=== PATIENT | female | born 1980 | race Caucasian/White ===

== ENCOUNTER 2017-04-19 19:33 | Emergency (ER) | payer MEDICAID ==
[2017-04-19 19:38] VITALS: BP 108/75; PULSE 77; RESP 18; TEMP 98.6; O2SAT 99
--- NOTE | 2017-04-19 20:18 | C.PDOC ---
History Of Present Illness The pt is a 36yo female, presents to the ED for evaluation stating "my nerves are shaking" and admits to feeling anxious. Pt has a history of depression and reports she stopped taking her Gabapentin 1 month ago. She states she had a psychiatrist appointment yesterday which she was unable to make. Pt denies any suicidal or homicidal ideation. States she had similar symptoms in the past and denies any new symptoms, chest pain, shortness of breath or fevers. Pt offers no additional medical complaints. 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) History/Exam Limitations: no limitations Onset/Duration Of Symptoms: Days, Waxing/Waning Associated Symptoms: Anxiety Past Medical History Reviewed: Historical Data, Nursing Documentation, Vital Signs Vital Signs: Last Vital Signs Temp 98.6 F 04/19/17 19:34 Pulse 77 04/19/17 19:34 Resp 18 04/19/17 19:34 BP 108/75 04/19/17 19:34 Pulse Ox 99 04/19/17 21:00 - Medical History PMH: Anxiety, Depression Denies: HIV, HTN, Chronic Kidney Disease, Seizures, Sexually Transmitted Disease Surgical History: No Surg Hx Family History: States: Unknown Family Hx - Social History Hx Tobacco Use: No Hx Alcohol Use: No Hx Substance Use: No - Immunization History Hx Tetanus Toxoid Vaccination: No Hx Influenza Vaccination: No Hx Pneumococcal Vaccination: No Review Of Systems Except As Marked, All Systems Reviewed And Found Negative. Neurological: Positive for: Other ("nerve shaking") Psych: Positive for: Anxiety. Negative for: Suicidal ideation, Other ( homicidal ideation) Physical Exam - Physical Exam Appears: Well, Non-toxic, No Acute Distress, Other (mildly anxious appearing ) Skin: Normal Color, Dry Head: Atraumatic, Normacephalic Eye(s): bilateral: Normal Inspection, EOMI Nose: Normal Oral Mucosa: Moist Neck: Normal ROM, Supple Chest: Symmetrical Cardiovascular: Rhythm Regular Respiratory: Normal Breath Sounds Gastrointestinal/Abdominal: Soft, No Tenderness Neurological/Psych: Oriented x3, Normal Speech, Normal Cognition ED Course And Treatment - Laboratory Results Result Diagrams: 04/19/17 20:15 04/19/17 20:15 O2 Sat by Pulse Oximetry: 99 (RA) Pulse Ox Interpretation: Normal Progress Note: Pt treated with benadryl and evaluated by mission worker Lisa who notes patient does not meet admission criteria. Pt instructed to follow up outpatient and take medications as instructed by her doctor. Pt agrees and notes she came to ED bc she needs a work note. Disposition - Disposition Disposition: HOME/ ROUTINE Disposition Time: 20:59 Condition: STABLE Additional Instructions: Follow up with primary medical doctor in 1-3 days without fail for further evaluation. Take medications as prescribed by your doctor. Return to the emergency department at any time if symptoms persist or worsen. Instructions: Anxiety (ED) Forms: [facility] (Bangladeshi), Work Excuse - Clinical Impression Clinical Impression: Anxiety - Scribe Statement The provider has reviewed the documentation as recorded by the Alexander Lazar Provider Attestation: All medical record entries made by the Alexander were at my direction and personally dictated by me. I have reviewed the chart and agree that the record accurately reflects my personal performance of the history, physical exam, medical decision making, and the department course for this patient. I have also personally directed, reviewed, and agree with the discharge instructions and disposition.
[2017-04-19 20:29] LABS: BASO % 0.5 % (0.0-2.0); EOS # 0.1 K/uL (0.0-0.7); EOS % 1.2 % (0.0-4.0); HEMATOCRIT 36.9 % (34.0-47.0); LYMPH % 39.7 % (20.0-40.0); MEAN CELL VOLUME 84.8 fL (81.0-99.0); MEAN CORPUSCULAR HEMOGLOBIN 28.1 pg (27.0-31.0); MEAN CORPUSCULAR HGB CONC 33.1 g/dL (33.0-37.0); MEAN PLATELET VOLUME 10.1 fL (7.2-11.7); MONO # 0.5 K/uL (0.0-0.8); MONO % 7.4 % (0.0-10.0); RED CELL DISTRIBUTION WIDTH 13.7 % (11.5-14.5); WHITE BLOOD COUNT 7.4 K/uL (4.8-10.8)
[2017-04-19 20:30] LABS: RBC URINE 1 /hpf (0-3); URINE BACTERIA RARE (<OCC); URINE BILIRUBIN NEGATIVE (NEGATIVE); URINE BLOOD NEGATIVE (NEGATIVE); URINE COLOR Yellow (YELLOW); URINE GLUCOSE (UA) NORMAL (Normal); URINE KETONE NEGATIVE (NEGATIVE); URINE LEUKOCYTE ESTERASE NEGATIVE Leu/uL (Negative); URINE PROTEIN NEGATIVE (NEGATIVE); URINE UROBILINOGEN NORMAL mg/dL (0.2-1.0); WBC URINE < 1 /hpf (0-5)
[2017-04-19 20:32] LABS: CHLORIDE 104 mmol/L (98-107)
[2017-04-19 20:33] LABS: SODIUM 139 mmol/L (132-148)
[2017-04-19 20:34] LABS: POTASSIUM 3.4 mmol/L (3.6-5.2)
[2017-04-19 20:36] LABS: ALB/GLOB RATIO 1.1 (1.0-2.1); ALKALINE PHOSPHATASE 71 U/L (38-126); ALT/SGPT 46 U/L (9-52); AST/SGOT 22 U/L (14-36); BILIRUBIN,TOTAL 0.7 mg/dL (0.2-1.3); BLOOD UREA NITROGEN 7 mg/dL (7-17); CARBON DIOXIDE 23 mmol/L (22-30); GFR AFRICAN-AMERICAN > 60; TOTAL PROTEIN 7.4 g/dL (6.3-8.3)
[2017-04-19 20:37] LABS: ALCOHOL SERUM < 10 mg/dl (0-10); CALCIUM 8.9 mg/dl (8.6-10.4); GLUCOSE,RANDOM 112 mg/dL (65-105)
== END 2017-04-19 21:10 | disposition home or self-care (01) ==
LOC: C.ER 19:33
DX: F41.9 Anxiety disorder, unspecified (principal)

== ENCOUNTER 2017-09-18 00:09 | Observation (INO) | payer MEDICAID ==
[2017-09-18 00:56] LABS: BASO % 0.5 % (0.0-2.0); EOS # 0.1 K/uL (0.0-0.7); EOS % 1.5 % (0.0-4.0); HEMOGLOBIN 12.5 g/dL (11.0-16.0); LYMPH # 4.1 K/uL (1.0-4.3); MEAN CELL VOLUME 85.2 fL (81.0-99.0); MEAN CORPUSCULAR HEMOGLOBIN 28.2 pg (27.0-31.0); MEAN CORPUSCULAR HGB CONC 33.1 g/dL (33.0-37.0); MEAN PLATELET VOLUME 11.1 fL (7.2-11.7); MONO # 0.7 K/uL (0.0-0.8); MONO % 8.6 % (0.0-10.0); NEUT # 3.1 K/uL (1.8-7.0); NEUT % 38.4 % (50.0-75.0); RBC 4.44 Mil/uL (3.80-5.20); RED CELL DISTRIBUTION WIDTH 13.5 % (11.5-14.5); WHITE BLOOD COUNT 8.1 K/uL (4.8-10.8)
[2017-09-18 01:06] LABS: ALB/GLOB RATIO 1.1 (1.0-2.1); ALBUMIN 4.3 g/dL (3.5-5.0); ALT/SGPT 33 U/L (9-52); AST/SGOT 25 U/L (14-36); BLOOD UREA NITROGEN 15 mg/dL (7-17); CALCIUM 8.5 mg/dl (8.6-10.4); GFR AFRICAN-AMERICAN > 60; GFR NON-AFRICAN AMERICAN > 60; LIPASE 121 U/L (23-300)
--- NOTE | 2017-09-18 01:37 | C.PDOC ---
History Of Present Illness 36 y/o female presents to ED with c/o constant abdominal pain that began this evening around 9PM. Denies nausea, vomiting, past hx of surgery, allergies to medications, ETOH use, or any other health problem. Time Seen by Provider: 09/18/17 00:55 Chief Complaint (Nursing): Abdominal Pain History/Exam Limitations: no limitations Onset/Duration Of Symptoms: Hrs Current Symptoms Are (Timing): Still Present Quality Of Discomfort: "Pain" Associated Symptoms: denies: Fever, Chills, Nausea, Vomiting, Diarrhea Exacerbating Factors: None, Movement Alleviating Factors: None Recent travel outside of the [place]: No Abnormal Vaginal Bleeding: No Past Medical History Reviewed: Historical Data, Nursing Documentation, Vital Signs Vital Signs: Last Vital Signs Temp 97.6 F 09/18/17 00:37 Pulse 67 09/18/17 00:37 Resp 20 09/18/17 00:37 BP 123/76 09/18/17 00:37 Pulse Ox 100 09/18/17 03:32 - Medical History PMH: Anxiety, Depression Surgical History: No Surg Hx Family History: States: No Known Family Hx - Social History Hx Tobacco Use: No Hx Alcohol Use: No Hx Substance Use: No - Immunization History Hx Tetanus Toxoid Vaccination: No Hx Influenza Vaccination: No Hx Pneumococcal Vaccination: No Review Of Systems Constitutional: Negative for: Fever, Chills Cardiovascular: Negative for: Chest Pain, Palpitations Respiratory: Negative for: Cough, Shortness of Breath Gastrointestinal: Positive for: Abdominal Pain. Negative for: Nausea, Vomiting , Diarrhea Neurological: Negative for: Weakness, Numbness Physical Exam - Physical Exam Appears: Well, Non-toxic Skin: Warm, Dry Head: Atraumatic Eye(s): bilateral: Normal Inspection Oral Mucosa: Moist Chest: Symmetrical, No Tenderness Cardiovascular: Rhythm Regular Respiratory: No Decreased Breath Sounds, No Rales, No Rhonchi, No Wheezing Gastrointestinal/Abdominal: Soft, Tenderness (RUQ) Neurological/Psych: Oriented x3, Other (No focal deficits) ED Course And Treatment - Laboratory Results Result Diagrams: 09/18/17 00:52 09/18/17 00:52 O2 Sat by Pulse Oximetry: 100 (Room air) Pulse Ox Interpretation: Normal Medical Decision Making Medical Decision Making: US GB IMPRESSION: Gallstones, associated with a positive sonographic Perez's sign. Early acute cholecystitis could have this appearance. There is no evidence of gallbladder wall thickening or pericholecystic fluid, however. Recommend clinical correlation. 420am pt w intractable pain/vomiting. disc w Dr Dave who will admit. Disposition - Disposition Disposition: HOSPITALIZED Disposition Time: 04:22 Condition: STABLE Forms: [facility] (Djiboutian) - Clinical Impression Clinical Impression: Biliary colic - Scribe Statement The provider has reviewed the documentation as recorded by the [place] All medical record entries made by the [place] were at my direction and personally dictated by me. I have reviewed the chart and agree that the record accurately reflects my personal performance of the history, physical exam, medical decision making, and the department course for this patient. I have also personally directed, reviewed, and agree with the discharge instructions and disposition.
[2017-09-18] MEDS ORDERED: Sodium Chloride 0.9% 1,000 ML IV ONE (01:52)
[2017-09-18] MEDS ORDERED: HYDROmorphone 1 mg/ml ISec IVP STA (01:52)
--- NOTE | 2017-09-18 03:29 | US ---
EXAM: US Abdomen Limited, Right Upper Quadrant EXAM DATE/TIME: 09/18/2017 1:09 AM CLINICAL HISTORY: 36 years old, female; Pain; Abdominal pain; Epigastric; Additional info: Ruq pain TECHNIQUE: Real-time ultrasound of the right upper quadrant with image documentation. COMPARISON: No relevant prior studies available. FINDINGS: Gallbladder: Appears mildly dilated. Contains multiple small, shadowing gallstones. Reportedly positive sonographic Perez's sign. No significant gallbladder wall thickening noted. No evidence of pericholecystic fluid. Common bile duct: Does not appear abnormally dilated, measuring less than 6 mm in diameter. Liver: Mildly enlarged, measuring 17 cm in length. Otherwise within normal limits in appearance. Normal flow seen in the main portal vein on color and Doppler imaging. Pancreas: Imaged portions appear unremarkable. Right kidney: Within normal limits in appearance. No evidence of hydronephrosis. Measures 11.3 cm in length. IMPRESSION: Gallstones, associated with a positive sonographic Perez's sign. Early acute cholecystitis could have this appearance. There is no evidence of gallbladder wall thickening or pericholecystic fluid, however. Recommend clinical correlation. See above for remaining findings.
[2017-09-18] MEDS ORDERED: Sodium Chloride 0.9% 1,000 ML IV SCH (04:30)
--- NOTE | 2017-09-18 07:28 | CP.PCM.CON ---
History of Present Illness - History of Present Illness History of Present Illness: General Surgery Dr. Sol 36 y/o F w/ no significant PMx presents to the ED c/o RUQ abd pain. Pt states pain began last evening around 9pm. Pt admits having had this pain in the past, however never this severe. Pain described as non-radiating, constant pain w/ fluctuating intensity. In the past, pain was relieved w/ mint tea but nothing relieved or exacerbated the pain this time. Pt admits to occasional reflux, however her current pain is different from the reflux symptoms. Pt denies F/V, N /V, D/C prior to arrival in the ED. Pt reports dizziness, lightheadedness, N/V after administration of IV pain meds in the ED. 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 Review of Systems - Review of Systems All systems: reviewed and no additional remarkable complaints except (see HPI) Past Patient History - Infectious Disease Hx of Infectious Diseases: None - Past Social History Smoking Status: Never Smoked - CARDIAC Hx Hypertension: No - PULMONARY Hx Respiratory Disorders: No Hx Tuberculosis: No - NEUROLOGICAL Hx Seizures: No - HEENT Hx HEENT Problems: No - RENAL Hx Chronic Kidney Disease: No - ENDOCRINE/METABOLIC Hx Endocrine Disorders: No - HEMATOLOGICAL/ONCOLOGICAL Hx Human Immunodeficiency Virus (HIV): No - INTEGUMENTARY Hx Dermatological Problems: No - MUSCULOSKELETAL/RHEUMATOLOGICAL Hx Musculoskeletal Disorders: No - GASTROINTESTINAL Hx Gastrointestinal Disorders: No - GENITOURINARY/GYNECOLOGICAL Hx Sexually Transmitted Disorders: No - PSYCHIATRIC Hx Anxiety: Yes Hx Depression: Yes Hx Substance Use: No - SURGICAL HISTORY Hx Surgeries: No - ANESTHESIA Hx Anesthesia: No Meds Allergies/Adverse Reactions: Allergies Allergy/AdvReac Type Severity Reaction Status Date / Time No Known Allergies Allergy Verified 04/19/17 19:38 - Medications Medications: Current Medications Sodium Chloride (Sodium Chloride 0.9%) 1,000 mls @ 100 mls/hr IV .Q10H ALEX Physical Exam - Constitutional Appears: Non-toxic, No Acute Distress - Head Exam Head Exam: NORMAL INSPECTION - Eye Exam Eye Exam: Normal appearance - ENT Exam ENT Exam: Mucous Membranes Moist - Respiratory Exam Respiratory Exam: NORMAL BREATHING PATTERN. absent: Accessory Muscle Use, Respiratory Distress - GI/Abdominal Exam GI & Abdominal Exam: Soft. absent: Distended, Firm, Guarding, Rebound, Rigid, Tenderness - Expanded GI/Abdominal Exam Expanded Expanded GI & Abdominal Exam: absent: Perez's Sign - Extremities Exam Extremities exam: Positive for: normal inspection - Neurological Exam Neurological exam: Alert, Oriented x3 - Psychiatric Exam Psychiatric exam: Normal Affect, Normal Mood - Skin Skin Exam: Dry, Intact, Normal Color, Warm Results - Vital Signs Recent Vital Signs: Last Vital Signs Temp 97.4 F L 09/18/17 04:50 Pulse 65 09/18/17 04:50 Resp 14 09/18/17 04:50 BP 102/65 09/18/17 04:50 Pulse Ox 98 09/18/17 04:50 - Labs Result Diagrams: 09/18/17 00:52 09/18/17 00:52 Labs: Laboratory Results - last 24 hr 09/18/17 09/18/17 00:52 00:52 WBC 8.1 RBC 4.44 Hgb 12.5 Hct 37.9 MCV 85.2 MCH 28.2 MCHC 33.1 RDW 13.5 Plt Count 206 MPV 11.1 Neut % (Auto) 38.4 L Lymph % (Auto) 51.0 H [place] % (Auto) 8.6 Eos % (Auto) 1.5 Baso % (Auto) 0.5 Neut # 3.1 Lymph # 4.1 [place] # 0.7 Eos # 0.1 Baso # 0.0 Sodium 137 Potassium 3.6 Chloride 103 Carbon Dioxide 22 Anion Gap 17 BUN 15 Creatinine 0.6 L Est GFR ( Amer) > 60 Est GFR (Non-Af Amer) > 60 Random Glucose 91 Calcium 8.5 L Total Bilirubin 0.5 AST 25 ALT 33 Alkaline Phosphatase 62 Total Protein 8.2 Albumin 4.3 Globulin 3.9 Albumin/Globulin Ratio 1.1 Lipase 121 - Imaging and Cardiology US - abdomen Status: Report reviewed by me Assessment & Plan - Assessment and Plan (Free Text) Assessment: 36 y/o F w/ abd pain 2/2 biliary colic vs acute cholecystitis - NPO, IVF - pain management - anti-emetics - Surgery risks and benefits explained to the pt via translation services. Pt to discuss w/ before making decision Pt discussed w/ Dr. Ebenezer Ramirez DO PGY2
[2017-09-18] MEDS: Dextrose 5%/0.45% NS 1,000 ML IV SCH ×2 (10:00→23:06)
--- NOTE | 2017-09-18 10:00 | CP.PCM.HP ---
History of Present Illness - History of Present Illness History of Present Illness: pt admited for abd pain biliary colic gall stons vomiting Present on Admission - Present on Admission Any Indicators Present on Admission: No Review of Systems - Review of Systems Systems not reviewed;Unavailable: Acuity of Condition - Constitutional Constitutional: As Per HPI - EENT Eyes: As Per HPI Ears: As Per HPI Nose/Mouth/Throat: As Per HPI - Breasts Breasts: As Per HPI - Cardiovascular Cardiovascular: As Per HPI - Respiratory Respiratory: As Per HPI - Gastrointestinal Gastrointestinal: Abdominal Pain, Nausea Additional comments: gall stons - Genitourinary Genitourinary: As Per HPI - Reproductive: Female Reproductive:Female: As Per HPI - Menstruation Menstruation: As Per HPI - Musculoskeletal Musculoskeletal: As Per HPI - Integumentary Integumentary: As Per HPI - Neurological Neurological: As Per HPI - Psychiatric Psychiatric: As Per HPI - Endocrine Endocrine: As Per HPI - Hematologic/Lymphatic Hematologic: As Per HPI Past Patient History - Infectious Disease Hx of Infectious Diseases: None - Past Social History Smoking Status: Never Smoked - CARDIAC Hx Hypertension: No - PULMONARY Hx Respiratory Disorders: No Hx Tuberculosis: No - NEUROLOGICAL Hx Seizures: No - HEENT Hx HEENT Problems: No - RENAL Hx Chronic Kidney Disease: No - ENDOCRINE/METABOLIC Hx Endocrine Disorders: No - HEMATOLOGICAL/ONCOLOGICAL Hx Human Immunodeficiency Virus (HIV): No - INTEGUMENTARY Hx Dermatological Problems: No - MUSCULOSKELETAL/RHEUMATOLOGICAL Hx Musculoskeletal Disorders: No - GASTROINTESTINAL Hx Gastrointestinal Disorders: No - GENITOURINARY/GYNECOLOGICAL Hx Sexually Transmitted Disorders: No - PSYCHIATRIC Hx Anxiety: Yes Hx Depression: Yes Hx Substance Use: No - SURGICAL HISTORY Hx Surgeries: No - ANESTHESIA Hx Anesthesia: No Meds Allergies/Adverse Reactions: Allergies Allergy/AdvReac Type Severity Reaction Status Date / Time No Known Allergies Allergy Verified 04/19/17 19:38 Physical Exam - Constitutional Appears: In Acute Distress - Head Exam Head Exam: NORMAL INSPECTION - Eye Exam Eye Exam: Normal appearance Pupil Exam: NORMAL ACCOMODATION - ENT Exam ENT Exam: Mucous Membranes Moist - Neck Exam Neck exam: Positive for: Normal Inspection - Cardiovascular Exam Cardiovascular Exam: REGULAR RHYTHM - GI/Abdominal Exam GI & Abdominal Exam: Normal Bowel Sounds, Tenderness - Rectal Exam Rectal Exam: NORMAL INSPECTION - Exam External exam: NORMAL EXTERNAL EXAM - Extremities Exam Extremities exam: Positive for: normal inspection - Back Exam Back exam: NORMAL INSPECTION - Psychiatric Exam Psychiatric exam: Normal Mood - Skin Skin Exam: Normal Color Results - Vital Signs Recent Vital Signs: Last Vital Signs Temp 97.3 F L 09/18/17 09:07 Pulse 61 09/18/17 09:07 Resp 20 09/18/17 09:07 BP 98/65 L 09/18/17 09:07 Pulse Ox 99 09/18/17 09:07 - Labs Result Diagrams: 09/18/17 00:52 09/18/17 00:52 Labs: Laboratory Results - last 24 hr 09/18/17 09/18/17 00:52 00:52 WBC 8.1 RBC 4.44 Hgb 12.5 Hct 37.9 MCV 85.2 MCH 28.2 MCHC 33.1 RDW 13.5 Plt Count 206 MPV 11.1 Neut % (Auto) 38.4 L Lymph % (Auto) 51.0 H [place] % (Auto) 8.6 Eos % (Auto) 1.5 Baso % (Auto) 0.5 Neut # 3.1 Lymph # 4.1 [place] # 0.7 Eos # 0.1 Baso # 0.0 Sodium 137 Potassium 3.6 Chloride 103 Carbon Dioxide 22 Anion Gap 17 BUN 15 Creatinine 0.6 L Est GFR ( Amer) > 60 Est GFR (Non-Af Amer) > 60 Random Glucose 91 Calcium 8.5 L Total Bilirubin 0.5 AST 25 ALT 33 Alkaline Phosphatase 62 Total Protein 8.2 Albumin 4.3 Globulin 3.9 Albumin/Globulin Ratio 1.1 Lipase 121 Assessment & Plan - Assessment and Plan (Free Text) Assessment: ac abd pain biliary colic gall stones Plan: surgery - Date & Time Date: 09/18/17 Time: 10:02
[2017-09-18 12:41] LABS: HCG,QUALITATIVE URINE NEGATIVE (NEGATIVE)
[2017-09-18 12:43] LABS: SQUAMOUS EPITHIAL 7 /hpf (0-5); URINE BILIRUBIN NEGATIVE (NEGATIVE); URINE CLARITY Hazy (Clear); URINE COLOR Yellow (YELLOW); URINE GLUCOSE (UA) NORMAL (Normal); URINE LEUKOCYTE ESTERASE NEG Leu/uL (Negative); URINE NITRATE NEGATIVE (NEGATIVE); URINE PROTEIN NEGATIVE (NEGATIVE); URINE UROBILINOGEN NORMAL mg/dL (0.2-1.0)
[2017-09-18 12:50] LABS: URINE BLOOD 3+ (NEGATIVE)
[2017-09-18] MEDS ORDERED: Propofol 10 mg/ml Inj (20 ML) ONE (13:40)
[2017-09-18] MEDS ORDERED: Midazolam 2 MG/2 ML VIAL ONE (13:40)
[2017-09-18] MEDS ORDERED: Lidocaine Hydrochloride 5 ML INJ ONE ×2 (13:41)
[2017-09-18] MEDS ORDERED: Iohexol 240 (50 ml) ONE ×2 (13:52→15:27)
[2017-09-18] MEDS ORDERED: Lidocaine 1% Inj (20ml) ONE (13:52)
[2017-09-18] MEDS ORDERED: ceFAZolin IV 2 gm in Dextrose 0 GM/0 ML BAG IVPB ONE (13:52)
[2017-09-18] MEDS ORDERED: Lactated Ringer's 1,000 ML IV ONE (14:21)
[2017-09-18] MEDS ORDERED: Morphine 4 MG/ML VIAL ONE (15:08)
[2017-09-18] MEDS ORDERED: Neostigmine Methylsulfate 3mg/3ml Syringe IV ONE (16:06)
--- NOTE | 2017-09-18 16:52 | RAD ---
PROCEDURE: Intraoperative Fluoroscopy. HISTORY: SYNTOMATIC CHOLELITHIASIS FINDINGS: Fluoroscopic assistance was provided for laparoscopic cholecystectomy.. Please refer to the operative report from during the procedure: 45.6 Total exam DLP: (mGy): 0.312 milligray per meter squared.
[2017-09-18] MEDS ORDERED: Oxycodone/Acetaminophen 5/325 mg Tab PO PRN (17:14)
--- NOTE | 2017-09-18 17:14 | PCM.SURG1 ---
Surgeon's Initial Post Op Note - Surgeon's Notes Surgeon: Dr. Sol Book Store Associate: Markus garces PGY2, Linus PGY1 Type of Anesthesia: General Endo Pre-Operative Diagnosis: symptomatic cholelithiasis Operative Findings: gallstone Post-Operative Diagnosis: Same Operation Performed: Lap luis w cholangiogram Specimen/Specimens Removed: gallbladder Estimated Blood Loss: EBL {In ML}: 50 Blood Products Given: N/A Drains Used: No Drains Post-Op Condition: Fair Date of Surgery/Procedure: 09/18/17 Time of Surgery/Procedure: 17:14
[2017-09-18] MEDS ORDERED: Dextrose 5%/0.45% NS 1,000 ML IV ONE ×2 (17:53)
--- NOTE | 2017-09-18 21:26 | OP ---
PROCEDURE DATE: 09/18/2017 PREOPERATIVE DIAGNOSES: Acute cholecystitis, biliary colic. PROCEDURE CARRIED OUT: Laparoscopic cholecystectomy with C-arm cholangiogram. SURGEON: Dylon Sol Jr., MD. REFERRAL MANAGEMENT LIAISON: Dr. Markus Rodgers. ANESTHESIA ADMINISTERED BY: P[place]ito. INDICATIONS: The patient is a 36-year-old woman with abdominal pain, found to have gallstones, admitted through the emergency room this morning with acute abdominal pain. OPERATIVE FINDINGS: A cholangiogram carried out to the cystic duct showed very small ducts with flow into the duodenum and visualization of the hepatic radicles. The rest of the intraoperative findings were unremarkable. The gallbladder was not particularly thick walled, etc. There were no other particular adhesions or abnormalities detected. DESCRIPTION OF PROCEDURE: The patient was given general anesthesia, intravenous antibiotics. Venodyne boots were applied. A Raven trocar was inserted via cut-down technique. Two additional trocars were placed. The cystic duct, cystic artery identified, view of safety obtained. After this had been done, the ducts were clipped, the cholangiogram carried out, the artery was clipped. We then removed the gallbladder from the field, although there was entry into the gallbladder during the procedure. A small amount of bile was leaked. This was irrigated out copiously. Most of the fluid that was present was removed. We had trouble closing the umbilical incision and had to revert to direct suture closure. This was inspected prior to closure to make sure that there was no injury to the bowel or associated omentum or anything else with respect to this and this was fine. We then closed the skin with subcuticular closure and Steri-Strips. Blood loss for procedure was less than 50 mL. Operation carried out, laparoscopic cholecystectomy with C-arm cholangiogram. Dylon Sol Jr., MD
[2017-09-19 00:27] VITALS: RESP 20
--- NOTE | 2017-09-19 01:04 | CARD ---
APPROVED REPORT EKG Measurement Heart [id number] IN 140P [id number] <Conclusion> Normal sinus rhythm Left posterior fascicular block T wave abnormality, consider inferior ischemia Abnormal ECG
[2017-09-19 08:26] LABS: HEMOGLOBIN 11.2 g/dL (11.0-16.0); MEAN CELL VOLUME 87.1 fL (81.0-99.0); MEAN CORPUSCULAR HEMOGLOBIN 28.3 pg (27.0-31.0); MEAN CORPUSCULAR HGB CONC 32.5 g/dL (33.0-37.0); MEAN PLATELET VOLUME 10.7 fL (7.2-11.7); RBC 3.95 Mil/uL (3.80-5.20); RED CELL DISTRIBUTION WIDTH 13.4 % (11.5-14.5); WHITE BLOOD COUNT 5.9 K/uL (4.8-10.8)
--- NOTE | 2017-09-19 08:45 | CP.PCM.PN ---
Subjective - Date & Time of Evaluation Date of Evaluation: 09/19/17 Time of Evaluation: 07:00 - Subjective Subjective: Surgical Progress Note: Patient was seen and examined at bedside in the AM. Patient has some abdominal tenderness. Per nurse patient voided this morning on her own. She denies fever , nausea, vomiting, shortness of breath or chest pain. Objective - Vital Signs/Intake and Output Vital Signs (last 24 hours): Temp Pulse Resp BP Pulse Ox 97.8 F 76 20 97/56 L 100 09/19/17 07:00 09/19/17 07:00 09/19/17 07:00 09/18/17 23:10 09/19/17 07:00 - Medications Medications: Current Medications Hydromorphone HCl (Dilaudid) 0.5 mg IVP Q4H PRN PRN Reason: Pain, moderate (4-7) Last Admin: 09/18/17 21:06 Dose: 0.5 mg Hydromorphone HCl (Dilaudid) 1 mg IVP Q4H PRN PRN Reason: Pain, severe (8-10) Last Admin: 09/19/17 03:40 Dose: 1 mg Dextrose/Sodium Chloride (Dextrose 5%/0.45% Ns 1000 Ml) 1,000 mls @ 80 mls/hr IV .[id number] [facility] Last Admin: 09/18/17 23:06 Dose: Not Given Ceftriaxone Sodium 1 gm/ (Sodium Chloride) 100 mls @ 100 mls/hr IVPB Q12H [facility] Last Admin: 09/19/17 01:58 Dose: 100 mls/hr Ondansetron HCl (Zofran Inj) 4 mg IVP Q4 PRN PRN Reason: Nausea/Vomiting Last Admin: 09/19/17 03:48 Dose: 4 mg Oxycodone/Acetaminophen (Percocet 5/325 Mg Tab) 2 tab PO Q4H PRN PRN Reason: Pain, Mild (1-3) Stop: 09/21/17 17:15 Pantoprazole Sodium (Protonix Inj) 40 mg IVP DAILY [facility] Last Admin: 09/18/17 12:18 Dose: 40 mg - Labs Labs: 09/19/17 08:17 09/18/17 00:52 - Head Exam Head Exam: ATRAUMATIC, NORMAL INSPECTION - Eye Exam Eye Exam: EOMI, Normal appearance - ENT Exam ENT Exam: Mucous Membranes Moist - Respiratory Exam Respiratory Exam: NORMAL BREATHING PATTERN - GI/Abdominal Exam GI & Abdominal Exam: Soft, Tenderness, Normal Bowel Sounds - Extremities Exam Extremities Exam: Normal Inspection - Neurological Exam Neurological Exam: Alert, Awake, Oriented x3 - Psychiatric Exam Psychiatric exam: Normal Affect, Normal Mood - Skin Skin Exam: Dry, Intact, Normal Color, Warm Assessment and Plan - Assessment and Plan (Free Text) Assessment: 36 year old female with cholelithiasis s/p lap luis with cholangiogram PO Day # 1 - pain management - anti-emetics Petra Whitney PGY-1
[2017-09-19 08:54] LABS: ALBUMIN 3.4 g/dL (3.5-5.0); ALT/SGPT 73 U/L (9-52); AST/SGOT 60 U/L (14-36); BLOOD UREA NITROGEN 9 mg/dL (7-17); CALCIUM 7.6 mg/dl (8.6-10.4); GFR AFRICAN-AMERICAN > 60; GFR NON-AFRICAN AMERICAN > 60
[2017-09-19 16:22] VITALS: BP 110/72; PULSE 84; TEMP 98.3; O2SAT 96
--- NOTE | 2017-09-19 17:14 | CP.PCM.PN ---
Subjective - Date & Time of Evaluation Date of Evaluation: 09/19/17 Time of Evaluation: 17:13 - Subjective Subjective: PATIENT WAS ADMITTED FOR BILIARY COLIC; STILL COMPLAINING OF ABD DISCOMFORT; DENIES SOB, CHEST PAIN AND NO SIGN OF DISTRESS NOTED Objective - Vital Signs/Intake and Output Vital Signs (last 24 hours): Temp Pulse Resp BP Pulse Ox 98.3 F 84 20 110/72 96 09/19/17 16:21 09/19/17 16:21 09/19/17 16:21 09/19/17 16:21 09/19/17 16:21 - Medications Medications: Current Medications Hydromorphone HCl (Dilaudid) 0.5 mg IVP Q4H PRN PRN Reason: Pain, moderate (4-7) Last Admin: 09/18/17 21:06 Dose: 0.5 mg Hydromorphone HCl (Dilaudid) 1 mg IVP Q4H PRN PRN Reason: Pain, severe (8-10) Last Admin: 09/19/17 14:50 Dose: 1 mg Dextrose/Sodium Chloride (Dextrose 5%/0.45% Ns 1000 Ml) 1,000 mls @ 80 mls/hr IV .[id number] [facility] Last Admin: 09/18/17 23:06 Dose: Not Given Ceftriaxone Sodium 1 gm/ (Sodium Chloride) 100 mls @ 100 mls/hr IVPB Q12H [facility] Last Admin: 09/19/17 11:50 Dose: 100 mls/hr Ondansetron HCl (Zofran Inj) 4 mg IVP Q4 PRN PRN Reason: Nausea/Vomiting Last Admin: 09/19/17 03:48 Dose: 4 mg Oxycodone/Acetaminophen (Percocet 5/325 Mg Tab) 2 tab PO Q4H PRN PRN Reason: Pain, Mild (1-3) Stop: 09/21/17 17:15 Pantoprazole Sodium (Protonix Inj) 40 mg IVP DAILY [facility] Last Admin: 09/19/17 11:54 Dose: 40 mg - Labs Labs: 09/19/17 08:17 09/19/17 08:17 Assessment and Plan - Assessment and Plan (Free Text) Assessment: A/P PATIENT SEEN AND EXAMINED AT THE BEDSIDE; LUNG SOUND CLEAR ABD DRESSING SRY AND INTACT; NO REDNESS OR DRAINAGE NOTED DISCUSS WITH SURGICAL AND DR COHN WHO AGREE AND CLEAR THE PATIENT FOR DC FOLLOW UP WITH DR COHN AT HER OFFICE IN A WEEK ---CALL FOR APPOINTMNET FOLLOW UP WITH DR GAMBOA AT HIS OFFICE IN A WEEK ---CALL FOR APPOINTMENT CONTINUE ALL YOUR HOME MEDICATION NEW PRESCRIPTION GIVEN PERCOCET EVERY 6 HOURS NEEDED FOR PAIN COLACE 100 MG BID BY MOUTH FOR CONSTIPATION ACTIVITY TOLERATED Ask someone to drive you to your appointments for the next 3 days. ... Wash the skin around your incision daily with mild soap and water. ... Eat your regular diet. ... Remember, it takes at least 1 week for you to get most of your strength and energy back. CALL DR COHN OR GO TO THE EMERGENCY ROOM IF SYMPTOMS RETURN OR WORSENING OR YOU NOTICE YELLOWING OF YOUR EYES CHILLS, FEVER OF 100.4 f, REDNESS, SWEELING, INCREASING PAIN, PUS AORUND THE AREA OF INCISSION INCREASING BELLY PAIN,; LWG SWOLLEN OR SHORTNESS OF BREATH DISCUSS WITH PATIENT WHO AGREE AND VERBALIZED UNDERSTANDING
== END 2017-09-19 18:25 | disposition home or self-care (01) ==
LOC: C.ER 00:09 → C.9E 04:20 → C.5S 07:02
PROVIDERS: ADMIT Internal Medicine; ATTEND Internal Medicine
DX: K80.00 Calculus of gallbladder with acute cholecystitis without obstruction (principal)
CPT/HCPCS: 36415; 47563; 76000; 76705; 80053; 81001; 83690; 84703; 85025; 85027; 88304; 93005; 96374; 96376; 99285; C9113; G0378; J0696; J1170; J1885; J2250; J2270; J2405; J2704; J2710; J2765; J3010; J7040; J7042; J7120; Q9966

== ENCOUNTER 2018-03-07 20:04 | Emergency (ER) | payer MEDICAID ==
[2018-03-07 20:11] VITALS: BP 105/73; PULSE 84; RESP 14; TEMP 98.6; O2SAT 98
--- NOTE | 2018-03-07 20:36 | C.PDOC ---
History Of Present Illness Patient is a 37 y/o female presenting to the ER complaining of left foot pain specifically on her toes since yesterday. Patient reports she took ibuprofen with mild relief. She denies any trauma/injuries, weakness, tingling, or numbness. Time Seen by Provider: 03/07/18 20:18 Chief Complaint (Nursing): Lower Extremity Problem/Injury History Per: Patient History/Exam Limitations: no limitations Onset/Duration Of Symptoms: Days Current Symptoms Are (Timing): Still Present Past Medical History Reviewed: Historical Data, Nursing Documentation, Vital Signs Vital Signs: Last Vital Signs Temp 98.6 F 03/07/18 20:09 Pulse 84 03/07/18 20:09 Resp 14 03/07/18 20:09 BP 105/73 03/07/18 20:09 Pulse Ox 98 03/07/18 21:02 - Medical History PMH: Anxiety, Depression Denies: HIV, HTN, Chronic Kidney Disease, Seizures, Sexually Transmitted Disease Surgical History: Cholecystectomy Family History: States: No Known Family Hx - Social History Hx Tobacco Use: No Hx Alcohol Use: No Hx Substance Use: No - Immunization History Hx Tetanus Toxoid Vaccination: No Hx Influenza Vaccination: No Hx Pneumococcal Vaccination: No Review Of Systems Musculoskeletal: Positive for: Foot Pain (Left) Neurological: Negative for: Weakness, Numbness Physical Exam - Physical Exam Appears: Non-toxic, No Acute Distress Skin: Normal Color, Warm, Dry Head: Atraumatic, Normacephalic Eye(s): bilateral: Normal Inspection Oral Mucosa: Moist Extremity: Normal ROM (Left foot), Tenderness (Minimal tenderness between 2nd, 3rd, 4th MTP area of left foot. ), No Deformity (Left foot ), No Swelling (Left foot ), No Other (No fungal rash in between toes, no warmth, no lesions to left foot ) Pulses: Left Dorsalis Pedis: Normal, Right Dorsalis Pedis: Normal Neurological/Psych: Oriented x3, Normal Motor, Normal Sensation Gait: Steady ED Course And Treatment O2 Sat by Pulse Oximetry: 98 (RA) Pulse Ox Interpretation: Normal Progress Note: Patient advised to wear hard sole shoes and continue motrin for pain PRN. Patient stable and ready for discharge. Patient intrusted to follow up with administrative technician. 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 - Scribe Statement The provider has reviewed the documentation as recorded by the Scribe Jena Humphrey All medical record entries made by the Alexander were at my direction and personally dictated by me. I have reviewed the chart and agree that the record accurately reflects my personal performance of the history, physical exam, medical decision making, and the department course for this patient. I have also personally directed, reviewed, and agree with the discharge instructions and disposition.
== END 2018-03-07 20:51 | disposition home or self-care (01) ==
LOC: C.ER 20:04
DX: M79.672 Pain in left foot (principal)

== ENCOUNTER 2018-07-08 22:10 | Emergency (ER) | payer MEDICAID ==
[2018-07-08 22:23] VITALS: BP 103/70; PULSE 72; RESP 20; TEMP 98.7; O2SAT 98
[2018-07-08] MEDS ORDERED: Bacitracin 500 Units/gm Oint Foilpak UD TOP ONE (22:38)
--- NOTE | 2018-07-08 22:41 | C.PDOC ---
History Of Present Illness 37 y/o female presents to the ED complaining of swelling to the left 3rd finger for the last 2 days. Patient also reports the area is throbbing. States she had similar episodes in the past, admits to biting her cuticles. Otherwise denies any fever, chills, numbness, tingling, or discharge from the area. Time Seen by Provider: 07/08/18 22:31 Chief Complaint (Nursing): Lower Extremity Problem/Injury History Per: Patient History/Exam Limitations: no limitations Onset/Duration Of Symptoms: Days Current Symptoms Are (Timing): Still Present Past Medical History Reviewed: Historical Data, Nursing Documentation, Vital Signs Vital Signs: Last Vital Signs Temp 98.7 F 07/08/18 22:15 Pulse 72 07/08/18 22:15 Resp 20 07/08/18 22:15 BP 103/70 07/08/18 22:15 Pulse Ox 98 07/08/18 22:15 - Medical History PMH: Anxiety, Depression Denies: HIV, HTN, Chronic Kidney Disease, Seizures, Sexually Transmitted Disease Surgical History: Cholecystectomy Family History: States: Unknown Family Hx - Social History Hx Tobacco Use: No Hx Alcohol Use: No Hx Substance Use: No - Immunization History Hx Tetanus Toxoid Vaccination: No Hx Influenza Vaccination: No Hx Pneumococcal Vaccination: No Review Of Systems Constitutional: Negative for: Fever, Chills Musculoskeletal: Positive for: Hand Pain (pain and swelling to left 3rd digit) Neurological: Negative for: Weakness, Numbness, Other (tingling) Physical Exam - Physical Exam Appears: Non-toxic, No Acute Distress Skin: Warm, Dry Eye(s): bilateral: Normal Inspection, EOMI Nose: Normal Oral Mucosa: Moist Chest: Symmetrical Respiratory: No Accessory Muscle Use Extremity: Normal ROM, Capillary Refill (less than 2 sec), No Deformity, Swelling (swelling tenderness and erythema to the distal left 3rd digit at the cuticle ) Pulses: Left Radial: Normal, Right Radial: Normal Neurological/Psych: Oriented x3, Normal Motor, Normal Sensation ED Course And Treatment O2 Sat by Pulse Oximetry: 98 (RA) Pulse Ox Interpretation: Normal Progress Note: Paronychia I&D performed without difficulty, tolerated well by patient. Tetanus booster given. Motrin PO administered for pain. Educated patient on wound care and course of discharge. Patient will be discharged home with Keflex, given initial dose in the ED. Return precautions discussed. Reassessment Condition: Improved - Incision & Drainage Of Abscess Prep Used: Sterile Water, Betadine Procedure: Incised W/Scalpel Blade#: (11), Drained Pus, Irrigated Cavity W/Saline, Probed To Break Up Loculations Disposition - Disposition Disposition: HOME/ ROUTINE Disposition Time: 22:39 Condition: STABLE Additional Instructions: Warm compress to the area. Take antibiotics as prescribed. Wound check in 3 days. Prescriptions: Cephalexin [cephalexin] 500 mg PO TID #21 cap Instructions: Paronychia (DC) Forms: [employer] (Mosotho) - Clinical Impression Clinical Impression: Paronychia - PA / BUSINESS ECONOMIST / Resident Statement MD/DO has reviewed & agrees with the documentation as recorded. - Scribe Statement The provider has reviewed the documentation as recorded by the Scribe (Ira Dewey) All medical record entries made by the Scribe were at my direction and personally dictated by me. I have reviewed the chart and agree that the record accurately reflects my personal performance of the history, physical exam, medical decision making, and the department course for this patient. I have also personally directed, reviewed, and agree with the discharge instructions and disposition.
[2018-07-08] MEDS ORDERED: Tetanus/Diphtheria Toxoids 0.5 ml Syringe IM ONE (22:46)
[2018-07-08] MEDS ORDERED: Bacitracin 500 Units/gm Oint Foilpak UD ONE (22:46)
[2018-07-08] MEDS ORDERED: Tdap Vaccine 0.5 ml Vial (10-64 yrs) IM ONE (22:49)
== END 2018-07-08 23:10 | disposition home or self-care (01) ==
LOC: C.ER 22:10
DX: L03.012 Cellulitis of left finger (principal); Z23 Encounter for immunization

== ENCOUNTER 2018-08-09 09:32 | Emergency (ER) | payer MEDICAID ==
[2018-08-09 09:39] VITALS: BMI 29.1
[2018-08-09 09:56] VITALS: TEMP 98.5; O2SAT 98
--- NOTE | 2018-08-09 11:11 | C.PDOC ---
History Of Present Illness 37 y/o female presents to the ED for evaluation of worsening skin wound to the right 3rd and 2nd digits, ongoing for 1 week. Patient states initially there were three small lesions on the right 3rd digit and one lesion on the 2nd digit, for which she saw a acute care physical therapist 2 days ago. She received an unknown injection to the digits, and was told the wound would grow larger and the scab would fall off. Patient reports cleaning the area as instructed. She was given Podofilox cream and Mupirocin cream, and prescribed an unknown pill which her pharmacy did not have in stock. For the past two days, patient reports worsening pain to the digits and is concerned due to some redness near the wound site. She denies any fever, chills, numbness, tingling, or focal weakness. The wound has not yet opened or drained. Derm- Dr. Ardon Time Seen by Provider: 08/09/18 09:54 Chief Complaint (Nursing): Abnormal Skin Integrity History Per: Patient History/Exam Limitations: no limitations Onset/Duration Of Symptoms: Days Current Symptoms Are (Timing): Still Present Location Of Injury: Right: Hand Quality Of Symptoms: Painful Past Medical History Reviewed: Historical Data, Nursing Documentation, Vital Signs Vital Signs: Last Vital Signs Temp 98.5 F 08/09/18 09:39 Pulse 86 08/09/18 09:39 Resp 18 08/09/18 09:39 BP 111/71 08/09/18 09:39 Pulse Ox 98 08/09/18 09:39 - Medical History PMH: Anxiety, Depression Denies: HIV, HTN, Chronic Kidney Disease, Seizures, Sexually Transmitted Disease Surgical History: Cholecystectomy Family History: States: Unknown Family Hx - Social History Hx Tobacco Use: No Hx Alcohol Use: No Hx Substance Use: No - Immunization History Hx Tetanus Toxoid Vaccination: No Hx Influenza Vaccination: No Hx Pneumococcal Vaccination: No Review Of Systems Constitutional: Negative for: Fever, Chills Musculoskeletal: Positive for: Hand Pain Skin: Positive for: Lesions (+ wound to right 3rd and 2nd digits) Physical Exam - Physical Exam Appears: Non-toxic, No Acute Distress Skin: Warm, Rash (Multiple pinpoint papular/vesicles rashes on the dorsal aspect of fingers to right hand, with 1 cm slightly erythematous, swollen, fluctuant wound over the dorsal aspect of right third finger, with some scabbing) Eye(s): bilateral: Normal Inspection Neck: Normal ROM Chest: Symmetrical Respiratory: No Accessory Muscle Use, Other (no respiratory distress) Extremity: Normal ROM (of all digits), Capillary Refill (less than 2 sec) Pulses: Left Radial: Normal, Right Radial: Normal Neurological/Psych: Oriented x3, Normal Speech, Normal Motor, Normal Sensation, Other (No focal deficits) ED Course And Treatment O2 Sat by Pulse Oximetry: 98 (RA) Pulse Ox Interpretation: Normal Medical Decision Making Medical Decision Making: Impression: Superinfection, right finger. Some of the papules look like they could be small vesicles as this may be possible herpetic ernie. Initial Plan: --Clindamycin 300 mg PO --Motrin 600 mg PO --Will attempt to drain wound Progress/Updates: Wound aspirated using 20 gauge needle, small amount of clear drainage expressed. Wound cultures sent. Patient advised to continue applying Mupirocin ointment at home and follow up with the acute care physical therapist in 1-2 days. Disposition Counseled Patient/Family Regarding: Diagnosis, Need For Followup - Disposition Referrals: Maryuri Dave MD [Staff Provider] - Disposition: HOME/ ROUTINE Disposition Time: 11:29 Condition: STABLE Additional Instructions: Continue using the Mupiricin cream three times a day and apply bandage. Follow up with your Dispatcher Radio within 1-2 days without fail. Return if worsened. A culture was sent and will result in 2 days. 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 - Scribe Statement The provider has reviewed the documentation as recorded by the Scribkillian Dewey All medical record entries made by the Sukhibkillian were at my direction and personally dictated by me. I have reviewed the chart and agree that the record accurately reflects my personal performance of the history, physical exam, medical decision making, and the department course for this patient. I have also personally directed, reviewed, and agree with the discharge instructions and disposition.
[2018-08-09 11:38] VITALS: BP 122/85; PULSE 84; RESP 16
== END 2018-08-09 11:37 | disposition home or self-care (01) ==
LOC: C.ER 09:32
DX: L02.511 Cutaneous abscess of right hand (principal)

== ENCOUNTER 2019-01-16 16:48 | Emergency (ER) | payer MEDICAID ==
[2019-01-16 16:48] VITALS: BMI 29.1
[2019-01-16 18:39] LABS: SQUAMOUS EPITHIAL 1 /hpf (0-5); URINE BILIRUBIN NEGATIVE (NEGATIVE); URINE BLOOD NEGATIVE (NEGATIVE); URINE CLARITY Clear (Clear); URINE COLOR Yellow (YELLOW); URINE GLUCOSE (UA) NORMAL (Normal); URINE LEUKOCYTE ESTERASE NEG Leu/uL (Negative); URINE PROTEIN NEGATIVE (NEGATIVE); URINE UROBILINOGEN NORMAL mg/dL (0.2-1.0)
--- NOTE | 2019-01-16 19:05 | C.PDOC ---
History Of Present Illness 38 y/o female presents to ED complaining of pelvic pain x10 days that radiates to her back. Patient has not seen a doctor for her symptoms. Patient also complains of right knee pain from remote fall. Denies any fever, nausea, vomiting, back pain, or urinary symptoms. Time Seen by Provider: 01/16/19 17:59 Chief Complaint (Nursing): Abdominal Pain History Per: Patient History/Exam Limitations: no limitations Onset/Duration Of Symptoms: Days Current Symptoms Are (Timing): Still Present Past Medical History Reviewed: Historical Data, Nursing Documentation, Vital Signs Vital Signs: Last Vital Signs Temp 98.7 F 01/16/19 17:10 Pulse 79 01/16/19 17:10 Resp 18 01/16/19 17:10 BP 122/75 01/16/19 17:10 Pulse Ox 99 01/16/19 17:10 Primary Care Provider: Maryuri Dave Medical History PMH: Anxiety, Depression Denies: HIV, HTN, Chronic Kidney Disease, Seizures, Sexually Transmitted Disease Surgical History: Cholecystectomy Family History: States: No Known Family Hx - Social History Hx Tobacco Use: No Hx Alcohol Use: No Hx Substance Use: No - Immunization History Hx Tetanus Toxoid Vaccination: No Hx Influenza Vaccination: No Hx Pneumococcal Vaccination: No Review Of Systems Except As Marked, All Systems Reviewed And Found Negative. Constitutional: Negative for: Fever, Chills Gastrointestinal: Negative for: Nausea, Vomiting Genitourinary: Positive for: Pelvic Pain. Negative for: Dysuria, Hematuria, Vaginal Discharge, Vaginal Bleeding Musculoskeletal: Negative for: Back Pain Physical Exam - Physical Exam Appears: Non-toxic, No Acute Distress Skin: Warm, Dry Head: Atraumatic, Normacephalic Eye(s): bilateral: Normal Inspection Oral Mucosa: Moist Neck: Supple Cardiovascular: Rhythm Regular, No Murmur Respiratory: Normal Breath Sounds, No Rales, No Rhonchi, No Wheezing Gastrointestinal/Abdominal: Soft, Tenderness (minimal suprapubic tenderness), No Guarding, No Rebound Extremity: Bilateral: Atraumatic, Normal ROM ED Course And Treatment - Laboratory Results Lab Results: Urine Color Yellow (YELLOW) 01/16/19 18:30 Urine Clarity Clear (Clear) 01/16/19 18:30 Urine pH 6.0 (5.0-8.0) 01/16/19 18:30 Ur Specific [place] 1.020 (1.003-1.030) 01/16/19 18:30 Urine Protein Negative mg/dL (NEGATIVE) 01/16/19 18:30 Urine Glucose (UA) Normal mg/dL (Normal) 01/16/19 18:30 Urine Ketones Negative mg/dL (NEGATIVE) 01/16/19 18:30 Urine Blood Negative (NEGATIVE) 01/16/19 18:30 Urine Nitrate Negative (NEGATIVE) 01/16/19 18:30 Urine Bilirubin Negative (NEGATIVE) 01/16/19 18:30 Urine Urobilinogen Normal mg/dL (0.2-1.0) 01/16/19 18:30 Ur Leukocyte Esterase Neg Mirela/uL (Negative) 01/16/19 18:30 Urine WBC (Auto) < 1 /hpf (0-5) 01/16/19 18:30 Urine RBC (Auto) 1 /hpf (0-3) 01/16/19 18:30 Ur Squamous Epith Cells 1 /hpf (0-5) 01/16/19 18:30 Urine HCG, Qual Negative (NEGATIVE) 01/16/19 18:30 Urine HCG, Qual Negative (NEGATIVE) 01/16/19 18:30 O2 Sat by Pulse Oximetry: 99 (RA) Pulse Ox Interpretation: Normal - CT Scan/US Pelvic US Other Rad Studies (CT/US): Read By Radiologist, Radiology Report Reviewed CT/US Interpretation: History. Pelvic pain. Comparison. None available. Technique. TA/TV. Findings. Uterus. Measures 7.1 x 4 x 4.4 cm. Normal in si ze and retroverted. No fibroid or other mass lesion seen. Endometrium. Measures 8 mm in diameter. Unremarkable. Right ovary. Measures 3.2 x 2.2 x 3.7 cm. No solid mass. Normal flow. Follicles, the larges measures 1.5 x 1.2 x 1.4 cm. Left ovary. Measures 4 x 1.9 x 2.4 cm. No solid mass. Normal flow. Follicles, the largest measures 1.1 x 0.9 x 1 cm. Free fluid. No significant free fluid noted. Other Findings. None. Impression. 1. Retroverted uterus. 2. Bilateral ovarian follicles. . Electronically signed on January 16, 2019 8:32:05 PM EDT by: Pierre Chavez M.D., M.B.A., Certified By ABR. Fellowship Trained MRI and CT Specialist. Medical Decision Making Medical Decision Making: ro uti/pelvic patholoy NO abd ttp no rlq ttp. Plan: --Knee XR --Transvaginal US --UA --Urine HCG --Tylenol PO us urine neg. pain resovled in er. no ttp. no rlq ttp on phone in nad. tolerating po stable for dc Disposition - Disposition Disposition: HOME/ ROUTINE Disposition Time: 22:00 Condition: STABLE Additional Instructions: return to er with worsneing. Instructions: Acute Abdomen (Belly Pain), Acute Pelvic Pain (DC) Forms: [employer] (Hungarian) - Clinical Impression Clinical Impression: Pelvic pain - Scribe Statement The provider has reviewed the documentation as recorded by the Sukhibkillian Ellis Provider Attestation: All medical record entries made by the Sukhibe were at my direction and personally dictated by me. I have reviewed the chart and agree that the record accurately reflects my personal performance of the history, physical exam, medical decision making, and the department course for this patient. I have also personally directed, reviewed, and agree with the discharge instructions and disposition.
[2019-01-16 21:22] VITALS: BP 106/62; PULSE 64; RESP 16; TEMP 98.1
[2019-01-16 22:17] VITALS: O2SAT 99
--- NOTE | 2019-01-17 14:33 | RAD ---
Date of service: 01/16/2019 PROCEDURE: Right Knee Radiographs. HISTORY: trauma COMPARISON: None. TECHNIQUE: 2 views obtained. FINDINGS: BONES: Normal. No fracture. JOINTS: Small posterior patella osteophyte formation. JOINT EFFUSION: Suspect trace suprapatellar joint effusion suspected OTHER FINDINGS: None. IMPRESSION: No evidence of acute displaced fracture nor dislocation. Suspect trace suprapatellar joint effusion
--- NOTE | 2019-01-17 17:02 | US ---
Date of service: 01/16/2019 PROCEDURE: Pelvic ultrasound HISTORY: Pelvic pain COMPARISON: Comparison made with pelvic ultrasound 12/18/2014 TECHNIQUE: Transabdominal/transvaginal sonographic evaluation of the pelvis performed. The uterus measures approximately FINDINGS: The uterus measures approximately 7.1 x 4.0 x 4.4 cm. Uterus is retroverted. No obvious mass or collection. Endometrium measures 8 mm. No free fluid seen in the cul de sac. Right ovary measures approximately 3.2 x 2.2 x 3.7 cm with multiple follicular cysts the largest measuring 1.5 x 1.2 x 1.4 cm. Right ovary exhibits arterial flow. Left ovary measures approximately 4.0 x 1.9 x 2.4 cm and also exhibits multiple follicular cysts the largest measuring approximately 1.1 x 0.9 x 1.0 cm. Left ovary exhibits arterial flow IMPRESSION: Bilateral follicular cysts as described. Otherwise unremarkable exam.
== END 2019-01-16 21:22 | disposition home or self-care (01) ==
LOC: C.ER 16:48
DX: R10.2 Pelvic and perineal pain (principal)